=== PATIENT | male | born 1980 | race Caucasian/White ===

== ENCOUNTER 2017-12-25 04:52 | Emergency (ER) | payer OTHER ==
[2017-12-25] MEDS ORDERED: LIDOCAINE HCL 2% (20ML MULTI-DOSE VIAL) NR ONE (05:31)
[2017-12-25 05:35] VITALS: TEMP 97.6; BMI 24.2
[2017-12-25] MEDS ORDERED: DIPHTH,PERTUSS(ACELL),TET 0.5 ML DISP.SYRIN IM ONE (05:54)
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
[2017-12-25] MEDS ORDERED: CEPHALEXIN MONOHYDRATE 500 MG CAPSULE (UD) PO ONE (06:32)
[2017-12-25] MEDS ORDERED: CEPHALEXIN MONOHYDRATE 500 MG CAPSULE (UD) ONE (06:34)
[2017-12-25] MEDS ORDERED: CLINDAMYCIN 900 MG PREMIX IVPB 900 MG/50 ML BAG IVPB ONE ×2 (07:09→07:42)
[2017-12-25 08:07] VITALS: BP 115/65; PULSE 90
== END 2017-12-25 08:39 | disposition short-term general hospital (02) ==
LOC: JER 04:52
PROC: 3E0234Z Introduction of Serum, Toxoid and Vaccine into Muscle, Percutaneous Approach (ICD-10-PCS; principal; 2017-12-25)
PROC: 3E03329 Introduction of Other Anti-infective into Peripheral Vein, Percutaneous Approach (ICD-10-PCS; 2017-12-25)
DX: S54.12XA Injury of median nerve at forearm level, left arm, initial encounter (principal); S61.412A Laceration without foreign body of left hand, initial encounter; X99.1XXA Assault by knife, initial encounter; Y93.89 Activity, other specified; Y92.89 Other specified places as the place of occurrence of the external cause; Y99.8 Other external cause status
CPT/HCPCS: 73130-TC-LR-FY; 90715; 99284-25